=== PATIENT | female | born 1945 | race Two or more races ===

== ENCOUNTER 2018-10-24 17:49 | Inpatient (IN) | payer OTHER ==
[~2018-10-24] VITALS: Ht 154.9 cm; Wt 32.7 kg
--- NOTE | 2018-10-24 18:06 | NUR ---
PACIENTE QUE LLEGA EN COMPANIA DE PERSONAL DE EMERGENCIAS MEDICAS Y FAMILIAR ALERTA CONSCIENTE Y ORIENTADA EN PERSONA. CANALIZADA EN BRAZO NEMESIO CON 0.9NSS KVO. POR EL PERSONAL DE EMERGENCIAS MEDICAS. LOS CUALES REFIEREN QUE LA PACIENTE PRESENTA LA PRESION ARTERIAL BAJA.
[2018-10-24] MEDS ORDERED: CLONAZEPAM0.5 MG (18:17)
[2018-10-24] MEDS ORDERED: SYNTHROID88 MCG (18:18)
--- NOTE | 2018-10-24 19:26 | NUR ---
EVALUA PTE.SE ORIENTA A PTE SOBRE TX MEDICO. PTE REFIERE COMPRENDER. SE ADMINISTRA IV'S MARYANN ORDEN MEDICA. SE REALIZA EKG Y SE PRESENTA A . SE NOTIFICA A QUE NO SE LOGRAN COLECTAR MUESTRAS DE LABORATORIOS. INDICA ADMINISTRAR IV'S Y LUEGO KHOI ORDEN MEDICA.
--- NOTE | 2018-10-25 02:01 | NUR ---
SE ORIENTA PACIENTE SOBRE TRATAMIENTO MEDICO EL CUAL REFIERE ENTENDER, SE ADMINISTRA MEDICAMENTO MARYANN ORDEN MEDICA. Y SE NOTIFICA A SMITH(TERAPIA RESPIRATORIA) SOBRE ABG Y TERAPIA RESPIRATORIA.
== END 2018-10-28 07:21 | disposition expired | DRG 190 ==
LOC: ER 17:49 → ICU-2 10-25 15:17 → SURH 10-26 17:03
PROVIDERS: ADMIT Specialist
PROC: 4A033R1 Measurement of Arterial Saturation, Peripheral, Percutaneous Approach (ICD-10-PCS; principal; 2018-10-25)
PROC: 3E0F7GC Introduction of Other Therapeutic Substance into Respiratory Tract, Via Natural or Artificial Opening (ICD-10-PCS; 2018-10-25)
PROC: B32TZZZ Computerized Tomography (CT Scan) of Left Pulmonary Artery (ICD-10-PCS; 2018-10-25)
PROC: B32SZZZ Computerized Tomography (CT Scan) of Right Pulmonary Artery (ICD-10-PCS; 2018-10-25)
PROC: B32TYZZ Computerized Tomography (CT Scan) of Left Pulmonary Artery using Other Contrast (ICD-10-PCS; 2018-10-25)
PROC: B32SYZZ Computerized Tomography (CT Scan) of Right Pulmonary Artery using Other Contrast (ICD-10-PCS; 2018-10-25)
PROC: BB24ZZZ Computerized Tomography (CT Scan) of Bilateral Lungs (ICD-10-PCS; 2018-10-25)
PROC: 05HB33Z Insertion of Infusion Device into Right Basilic Vein, Percutaneous Approach (ICD-10-PCS; 2018-10-25)
DX: J44.1 Chronic obstructive pulmonary disease with (acute) exacerbation (principal); J96.90 Respiratory failure, unspecified, unspecified whether with hypoxia or hypercapnia; R04.2 Hemoptysis; N17.8 Other acute kidney failure; E03.8 Other specified hypothyroidism; Z74.01 Bed confinement status; Z87.891 Personal history of nicotine dependence; Z66 Do not resuscitate